=== PATIENT | female | born 1955 | race American Indian/Alaskan Native ===

== ENCOUNTER 2022-02-25 11:42 | Inpatient (IN) | payer MEDICARE, OTHER ==
[2022-02-25] MEDS ORDERED: FUROSEMIDE 40 MG/4 ML INJ IV ONE (11:57)
[2022-02-25] MEDS ORDERED: NITROGLYCERIN 0.4 MG TAB SUBL SL ONE (11:59)
--- NOTE | 2022-02-25 12:02 | Emergency Department Report ---
ED Shortness of Breath HPI - General Chief Complaint: Dyspnea/Respdistress Stated Complaint: GODFREY Time Seen by Provider: 02/25/22 11:54 Source: patient, EMS Mode of arrival: Stretcher Limitations: No Limitations - History of Present Illness Initial Comments: Patient is 66 years old female with history of congestive heart failure and hypertension. Patient brought to the emergency room via EMS from home for evaluation of shortness of breath for the last 2 days. Patient stated that she had chills but no fever. She denied any chest pain. Patient also reported that she is out of her Lasix. MD Complaint: shortness of breath, cough -: days(s) (2) Severity: moderate Known History Of: congestive heart failure Context: recent URI Associated Symptoms: cough - Related Data Previous Rx's Medication Instructions Recorded Last Taken Type HYDROcodone/APAP 5-325 [[place] 1 each PO Q6HR PRN #20 tablet 10/16/14 Unknown Rx 5-325 mg TAB] Ibuprofen [Motrin] 800 mg PO Q8H PRN #30 tablet 10/16/14 Unknown Rx Promethazine [Phenergan] 25 mg PO Q6H PRN #20 tablet 10/16/14 Unknown Rx Allergies Allergy/AdvReac Type Severity Reaction Status Date / Time No Known Allergies Allergy Verified 02/25/22 11:51 ED Review of Systems ROS: Stated complaint: GODFREY Other details as noted in HPI Comment: All other systems reviewed and negative Constitutional: denies: chills, fever Respiratory: cough, orthopnea, shortness of breath, SOB with exertion, SOB at rest. denies: wheezing Cardiovascular: palpitations. denies: chest pain Gastrointestinal: denies: abdominal pain, nausea, vomiting Neurological: denies: headache, weakness, numbness, paresthesias, confusion ED Past Medical Hx - Past Medical History Hx Hypertension: Yes Hx Diabetes: Yes Hx GERD: Yes Hx Arthritis: Yes - Surgical History Additional Surgical History: brain aneurym repair - Social History Smoking Status: Current Every Day Smoker Substance Use Type: Alcohol - Medications Home Medications: Home Medications Medication Instructions Recorded Confirmed Last Taken Type HYDROcodone/APAP 5-325 [[place] 1 each PO Q6HR PRN #20 tablet 10/16/14 Unknown Rx 5-325 mg TAB] Ibuprofen [Motrin] 800 mg PO Q8H PRN #30 tablet 12/23/14 Unknown Rx Promethazine [Phenergan] 25 mg PO Q6H PRN #20 tablet 10/16/14 Unknown Rx ED Physical Exam - General Limitations: No Limitations General appearance: alert, in distress - Head Head exam: Present: atraumatic, normocephalic, normal inspection - Eye Eye exam: Present: normal appearance - ENT ENT exam: Present: normal exam, normal orophraynx, mucous membranes moist - Neck Neck exam: Present: normal inspection, full ROM. Absent: tenderness, meningismus - Respiratory Respiratory exam: Present: respiratory distress, rales, decreased breath sounds. Absent: wheezes, rhonchi, stridor - Cardiovascular Cardiovascular Exam: Present: tachycardia - GI/Abdominal GI/Abdominal exam: Present: soft, normal bowel sounds. Absent: distended, tenderness, guarding, rebound, rigid, organomegaly, mass, bruit, pulsatile mass, hernia - Extremities Exam Extremities exam: Present: normal inspection, full ROM, normal capillary refill. Absent: tenderness, pedal edema - Back Exam Back exam: Present: normal inspection, full ROM. Absent: CVA tenderness (R), CVA tenderness (L) - Neurological Exam Neurological exam: Present: alert, oriented X3, CN II-XII intact - Psychiatric Psychiatric exam: Present: normal mood - Skin Skin exam: Present: warm, intact, normal color ED Course Vital Signs 02/25/22 02/25/22 02/25/22 12:15 12:18 12:27 Temperature 98.7 F Pulse Rate 97 H 88 Respiratory 40 H 30 H 19 Rate Blood Pressure Blood Pressure 145/88 197/102 [Left] O2 Sat by Pulse 97 95 94 Oximetry 02/25/22 12:47 Temperature Pulse Rate 101 H Respiratory 38 H Rate Blood Pressure 189/106 Blood Pressure [Left] O2 Sat by Pulse Oximetry ED Medical Decision Making - Lab Data Result diagrams: 02/25/22 Unknown 02/25/22 Unknown - EKG Data -: EKG Interpreted by Me EKG shows normal: sinus rhythm Rate: normal - EKG Data Interpretation: nonspecific ST-T wave kim - Radiology Data Radiology results: report reviewed - Medical Decision Making Patient is 66 years old female with history of congestive heart failure and hype rtension. Patient brought to the emergency room via EMS from home for evaluation of shortness of breath for the last 2 days. Patient stated that she had chills but no fever. She denied any chest pain. Patient also reported that she is out of her Lasix. EKG showed sinus rhythm with a heart rate of [address] depression in the inferior lead. Chest x-ray showed pulmonary edema. Labs reviewed and showed a BNP of 22,000. Patient received Lasix. Patient also found to be hypertensive with a blood pressure of 190/110. Patient received nitroglycerin also. Patient's symptoms improved. I discussed the patient with Dr. Pierre, he agreed to admit the patient to medical service for further management. Critical Care Time: Yes Critical care time in (mins) excluding proc time.: 35 Critical care attestation.: If time is entered above; I have spent that time in minutes in the direct care of this critically ill patient, excluding procedure time. ED Disposition Clinical Impression: Acute exacerbation of CHF (congestive heart failure), Volume overload Disposition: ADMITTED INPATIENT Is pt being admited?: Yes Condition: Stable
--- NOTE | 2022-02-25 12:33 | XRay Report ---
CHEST 1 VIEW INDICATION: Dyspnea. COMPARISON: None FINDINGS: Support devices: None. Heart: Moderate cardiomegaly Lungs/Pleura: Moderate pulmonary venous congestion. There is focal airspace opacity at the right lung base which could represent an early infiltrate. No pleural effusion or pneumothorax. Additional findings: None. IMPRESSION: Cardiomegaly and pulmonary venous congestion. Possible early infiltrate at the right lung base. Suma elate for pneumonia. Signer Name: Olaf Carballo Jr, MD Signed: 02/25/2022 12:29 PM Workstation Name: [id number]
[2022-02-25 12:42] LABS: BUN/Creatinine Ratio 16; Blood Urea Nitrogen 16 mg/dL (7-17); Calcium 9.3 mg/dL (8.4-10.2); Hemolysis Index 192
[2022-02-25 12:43] LABS: Basophils # (Auto) 0.1 K/mm3 (0.0-0.1); Basophils % (Auto) 0.9 % (0.0-1.8); Hematocrit 42.4 % (30.3-42.9); Hemoglobin 13.5 gm/dl (10.1-14.3); Lymphocytes # (Auto) 0.4 K/mm3 (1.2-5.4); Lymphocytes % (Auto) 4.7 % (13.4-35.0); Mean Corpuscular HGB Conc 32 % (30-34); Mean Corpuscular Volume 84 fl (79-97); Monocytes # (Auto) 0.4 K/mm3 (0.0-0.8); Monocytes % (Auto) 5.4 % (0.0-7.3); Platelet Count 165 K/mm3 (140-440); Red Blood Count 5.08 M/mm3 (3.65-5.03); Red Cell Distribution Width 14.6 % (13.2-15.2)
[2022-02-25 12:50] LABS: INR 0.93 (0.87-1.13)
[2022-02-25 12:51] LABS: Partial Thromboplastin Time 34.9 Sec. (24.2-36.6)
[2022-02-25] MEDS ORDERED: MORPHINE 2 MG/1 ML INJ IV PRN ×2 (13:12→17:10)
[2022-02-25] MEDS ORDERED: ACETAMINOPHEN 325 MG TAB PO PRN ×2 (13:12→17:10)
[2022-02-25] MEDS: ONDANSETRON 4 MG/2 ML INJ IV PRN (15:33)
[2022-02-25] MEDS ORDERED: ONDANSETRON 4 MG/2 ML INJ IV PRN (17:10)
--- NOTE | 2022-02-25 17:13 | History and Physical Report ---
History of Present Illness Date of examination: 02/25/22 Date of admission: 02/25/22 13:12 Chief complaint: Shortness of breath for 2 days History of present illness: 55-year-old female with history of congestive heart failure hypertension comes in for increasing shortness of breath for the last 2 days. Patient has orthopnea. No PND attacks. Palpitations. No chest pain. Patient has class IV NYHA symptoms. Patient is a poor historian and not able to give much history. Patient states that he may have failure for the last couple of years. Not able to name or place. No fever or chills. Exercise is a precipitating factor and rest is a relieving factor - Past Medical History --Hypertension: Yes --Diabetes: Yes --GERD: Yes --Arthritis: Yes - Surgical History --Additional Surgical History: brain aneurym repair - Social History --Smoking Status: Current Every Day Smoker --Substance Use Type: Alcohol - Medications --Home Medications: Home Medications Medication Instructions Recorded Confirmed Last Taken Type HYDROcodone/APAP 5-325 [[place] 1 each PO Q6HR PRN #20 tablet 10/16/14 Unknown Rx 5-325 mg TAB] Ibuprofen [Motrin] 800 mg PO Q8H PRN #30 tablet 10/16/14 Unknown Rx Promethazine [Phenergan] 25 mg PO Q6H PRN #20 tablet 10/16/14 Unknown Rx Review of Systems ROS: Stated complaint: GODFREY Other details as noted in HPI Comment: All other systems reviewed and negative Constitutional: denies: chills, fever Respiratory: cough, orthopnea, shortness of breath, SOB with exertion, SOB at rest. denies: wheezing Cardiovascular: palpitations. denies: chest pain Gastrointestinal: denies: abdominal pain, nausea, vomiting Neurological: denies: headache, weakness, numbness, paresthesias, confusion Medications and Allergies Allergies Allergy/AdvReac Type Severity Reaction Status Date / Time No Known Allergies Allergy Verified 02/25/22 11:51 Home Medications Medication Instructions Recorded Confirmed Last Taken Type Furosemide [Lasix] 20 mg PO QDAY 02/25/22 02/25/22 Unknown History Gabapentin [Neurontin] 100 mg PO Q8HR 02/25/22 02/25/22 Unknown History carvediloL [Coreg] 6.25 mg PO DAILY 02/25/22 02/25/22 Unknown History lisinopriL [Lisinopril] 20 mg PO DAILY 02/25/22 02/25/22 Unknown History Active Meds: Active Medications Acetaminophen (Acetaminophen 325 Mg Tab) 650 mg PO Q4H PRN PRN Reason: Pain MILD(1-3)/Fever >100.5/AGUIAR Morphine Sulfate (Morphine 2 Mg/1 Ml Inj) 2 mg IV Q4H PRN PRN Reason: Pain, Moderate (4-6) Last Admin: 02/25/22 15:33 Dose: 2 mg Ondansetron HCl (Ondansetron 4 Mg/2 Ml Inj) 4 mg IV Q8H PRN PRN Reason: Nausea And Vomiting Last Admin: 02/25/22 15:33 Dose: 4 mg Sodium Chloride (Sodium Chloride 0.9% 10 Ml Flush Syringe) 10 ml IV BID CHARLY Sodium Chloride (Sodium Chloride 0.9% 10 Ml Flush Syringe) 10 ml IV PRN PRN PRN Reason: LINE FLUSH Exam - Constitutional Vitals: Temp Pulse Resp BP Pulse Ox 98.7 F 87 18 188/100 99 02/25/22 12:18 02/25/22 16:40 02/25/22 16:40 02/25/22 16:40 02/25/22 16:40 General appearance: Present: mild distress, well-nourished - EENT Eyes: Present: PERRL ENT: hearing intact, clear oral mucosa - Neck Neck: Present: supple, normal ROM - Respiratory Respiratory effort: normal Respiratory: bilateral: CTA, rales - Cardiovascular Heart rate: 78 Rhythm: regular Heart Sounds: Present: S1 & S2. Absent: rub, click - Extremities Extremities: pulses symmetrical, No edema Peripheral Pulses: within normal limits - Abdominal General gastrointestinal: Present: soft, non-tender, non-distended, normal bowel sounds Female genitourinary: Present: normal - Integumentary Integumentary: Present: clear, warm, dry - Musculoskeletal Musculoskeletal: gait normal, strength equal bilaterally - Psychiatric Psychiatric: appropriate mood/affect, intact judgment & insight - Neurologic Neurologic: CNII-XII intact, moves all extremities - Allied Health Allied health notes reviewed: nursing, case management HEART Score - HEART Score History: Moderately suspicious Age: 45-65 Risk factors: 1-2 risk factors Troponin: Troponin T < 0.010 ng/mL (0.00-0.029) 05/04/22 Unknown Troponin T < 0.010 ng/mL (0.00-0.029) 02/25/22 Unknown Troponin: 1-3x normal limit - Critical Actions Critical Actions: 4-6 pts:12-16.6% risk of adverse cardiac event. Should be admitted Results - Labs CBC & Chem 7: 02/26/22 05:41 02/26/22 05:41 Labs: Laboratory Last Values WBC 7.9 K/mm3 (4.5-11.0) 02/25/22 Unknown RBC 5.08 M/mm3 (3.65-5.03) H 02/25/22 Unknown Hgb 13.5 gm/dl (10.1-14.3) 02/25/22 Unknown Hct 42.4 % (30.3-42.9) 02/25/22 Unknown MCV 84 fl (79-97) 02/25/22 Unknown MCH 27 pg (28-32) L 02/25/22 Unknown MCHC 32 % (30-34) 02/25/22 Unknown RDW 14.6 % (13.2-15.2) 02/25/22 Unknown Plt Count 165 K/mm3 (140-440) 02/25/22 Unknown Lymph % (Auto) 4.7 % (13.4-35.0) L 02/25/22 Unknown Casey % (Auto) 5.4 % (0.0-7.3) 02/25/22 Unknown Eos % (Auto) 0.0 % (0.0-4.3) 02/25/22 Unknown Baso % (Auto) 0.9 % (0.0-1.8) 02/25/22 Unknown Lymph # (Auto) 0.4 K/mm3 (1.2-5.4) L 02/25/22 Unknown Casey # (Auto) 0.4 K/mm3 (0.0-0.8) 02/25/22 Unknown Eos # (Auto) 0.0 K/mm3 (0.0-0.4) 02/25/22 Unknown Baso # (Auto) 0.1 K/mm3 (0.0-0.1) 02/25/22 Unknown Seg Neutrophils % 89.0 % (40.0-70.0) H 02/25/22 Unknown Seg Neutrophils # 7.1 K/mm3 (1.8-7.7) 02/25/22 Unknown PT 13.5 Sec. (12.2-14.9) 02/25/22 Unknown INR 0.93 (0.87-1.13) 02/25/22 Unknown APTT 34.9 Sec. (24.2-36.6) 02/25/22 Unknown Sodium 137 mmol/L (137-145) 02/25/22 Unknown Potassium 5.0 mmol/L (3.6-5.0) 02/25/22 Unknown Chloride 99.7 mmol/L (98-107) 02/25/22 Unknown Carbon Dioxide 20 mmol/L (22-30) L 02/25/22 Unknown Anion Gap 22 mmol/L 02/25/22 Unknown BUN 16 mg/dL (7-17) 02/25/22 Unknown Creatinine 1.0 mg/dL (0.6-1.2) 02/25/22 Unknown Estimated GFR > 60 ml/min 02/25/22 Unknown BUN/Creatinine Ratio 16 % 02/25/22 Unknown Glucose 154 mg/dL (65-100) H 02/25/22 Unknown Lactic Acid 2.40 mmol/L (0.7-2.0) H* 02/25/22 Unknown Calcium 9.3 mg/dL (8.4-10.2) 02/25/22 Unknown Troponin T < 0.010 ng/mL (0.00-0.029) 02/25/22 Unknown Troponin T < 0.010 ng/mL (0.00-0.029) 02/25/22 Unknown NT-Pro-B Natriuret Pep 57084 pg/mL (0-900) H 02/25/22 Unknown Short CBC 02/25/22 02/26/22 Range/Units Unknown 05:41 WBC 7.9 7.8 (4.5-11.0) K/mm3 Hgb 13.5 14.3 (10.1-14.3) gm/dl Hct 42.4 42.5 (30.3-42.9) % Plt Count 165 157 (140-440) K/mm3 BMP 02/25/22 02/26/22 Unknown 05:41 Sodium 137 136 L Potassium 5.0 3.9 D Chloride 99.7 96.2 L Carbon Dioxide 20 L 25 BUN 16 22 H Creatinine 1.0 0.9 Glucose 154 H 128 H Calcium 9.3 8.8 Cardiac Enzymes 02/25/22 02/25/22 Range/Units Unknown Unknown Troponin T < 0.010 < 0.010 (0.00-0.029) ng/mL Liver Function 02/26/22 Range/Units 05:41 Total Bilirubin 0.40 (0.1-1.2) mg/dL AST 22 (5-40) units/L ALT 15 (7-56) units/L Alkaline Phosphatase 88 (35-129) units/L Albumin 4.1 (3.9-5) g/dL Microbiology: Microbiology 02/25/22 13:01 Peripheral/Venous Blood Culture - Preliminary Culture in Progress 02/25/22 12:22 Peripheral/Venous Blood Culture - Preliminary Culture in Progress - Imaging and Cardiology EKG: report reviewed (Sinus tachycardia no acute ST-T wave changes.) Imaging and Cardiology: Chest x-ray Cardiomegaly and pulmonary venous congestion. Possible early infiltrate in the right lung base. Correlate for pneumonia Assessment and Plan Advance Directives: Yes (Full code) VTE prophylaxis?: Chemical Plan of care discussed with patient/family: Yes - Patient Problems (1) Acute exacerbation of CHF (congestive heart failure) Current Visit: Yes Status: Acute Qualifiers: Heart failure type: combined systolic and diastolic Qualified Code(s): I50.43 - Acute on chronic combined systolic (congestive) and diastolic (congestive) heart failure Plan to address problem: Patient on IV Lasix and Aldactone Echocardiogram for ejection fraction. Normal valve function and wall motion abnormalities (2) HTN (hypertension) Current Visit: Yes Status: Chronic Qualifiers: Hypertension type: primary hypertension Qualified Code(s): I10 - Essential (primary) hypertension Plan to address problem: Continue antihypertensives and adjust medications. (3) T2DM (type 2 diabetes mellitus) Current Visit: Yes Status: Chronic Plan to address problem: Coverage for now and check hemoglobin A1c. (4) DVT prophylaxis Current Visit: Yes Status: Acute Plan to address problem: On anticoagulation GI prophylaxis. (5) Advance care planning Current Visit: Yes Status: Acute Plan to address problem: Disease education conducted, care plan discussed, diagnosis discussed. Prognosis discussed. Patient is full code. Patient family member at
[2022-02-25] MEDS ORDERED: hydrALAZINE 20 MG/1 ML INJ IV PRN (17:14)
[2022-02-25] MEDS: SPIRONOLACTONE 50 MG TAB PO SCH (17:27)
[2022-02-25] MEDS: oxyCODONE /ACETAMINOPHEN 5-325MG TAB PO PRN (17:27)
[2022-02-25] MEDS: VALSARTAN 160MG TAB PO SCH (17:27)
[2022-02-25] MEDS: amLODIPine 10 MG TAB PO SCH (17:27)
[2022-02-25] MEDS: FUROSEMIDE 40 MG/4 ML INJ IV SCH (17:29)
[2022-02-25] MEDS: FAMOTIDINE 20 MG TAB PO SCH (22:20)
[2022-02-26] MEDS: oxyCODONE /ACETAMINOPHEN 5-325MG TAB PO PRN (04:48)
[2022-02-26] MEDS: FUROSEMIDE 40 MG/4 ML INJ IV SCH ×2 (05:05→17:38)
[2022-02-26 06:06] LABS: Basophils # (Auto) 0.1 K/mm3 (0.0-0.1); Basophils % (Auto) 0.7 % (0.0-1.8); Hematocrit 42.5 % (30.3-42.9); Hemoglobin 14.3 gm/dl (10.1-14.3); Lymphocytes # (Auto) 1.3 K/mm3 (1.2-5.4); Lymphocytes % (Auto) 16.4 % (13.4-35.0); Mean Corpuscular HGB Conc 34 % (30-34); Mean Corpuscular Volume 81 fl (79-97); Monocytes # (Auto) 0.5 K/mm3 (0.0-0.8); Platelet Count 157 K/mm3 (140-440); Red Blood Count 5.24 M/mm3 (3.65-5.03); Red Cell Distribution Width 14.4 % (13.2-15.2)
[2022-02-26 06:28] LABS: Alanine Aminotransferase 15 units/L (7-56); Albumin 4.1 g/dL (3.9-5); BUN/Creatinine Ratio 24; Blood Urea Nitrogen 22 mg/dL (7-17); Calcium 8.8 mg/dL (8.4-10.2); Hemolysis Index 8
[2022-02-26] MEDS ORDERED: LISINOPRIL 10 MG TAB PO SCH (10:00)
[2022-02-26] MEDS: SPIRONOLACTONE 50 MG TAB PO SCH (10:10)
[2022-02-26] MEDS: LISINOPRIL 20 MG TAB PO SCH (10:11)
[2022-02-26] MEDS: GABAPENTIN 100 MG CAP PO SCH ×3 (10:11→21:34)
[2022-02-26] MEDS: amLODIPine 10 MG TAB PO SCH (10:11)
[2022-02-26] MEDS: FAMOTIDINE 20 MG TAB PO SCH ×2 (10:11→21:34)
[2022-02-26] MEDS: VALSARTAN 160MG TAB PO SCH ×2 (10:11→17:38)
[2022-02-26] MEDS: carvediloL 6.25 MG TAB PO SCH (10:12)
--- NOTE | 2022-02-26 10:48 | Electrocardiograph Report ---
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
[2022-02-27] MEDS: ONDANSETRON 4 MG/2 ML INJ IV PRN ×2 (00:51→16:27)
[2022-02-27] MEDS: oxyCODONE /ACETAMINOPHEN 5-325MG TAB PO PRN ×2 (01:12→13:33)
[2022-02-27] MEDS: VALSARTAN 160MG TAB PO SCH ×2 (06:20→18:33)
[2022-02-27] MEDS: FUROSEMIDE 40 MG/4 ML INJ IV SCH ×2 (06:20→18:22)
[2022-02-27] MEDS: GABAPENTIN 100 MG CAP PO SCH ×2 (06:20→13:31)
--- NOTE | 2022-02-27 07:32 | Progress Note ---
Assessment and Plan - Patient Problems (1) Acute exacerbation of CHF (congestive heart failure) Current Visit: Yes Status: Acute Qualifiers: Heart failure type: combined systolic and diastolic Qualified Code(s): I50.43 - Acute on chronic combined systolic (congestive) and diastolic (congestive) heart failure Plan to address problem: Patient on IV Lasix and Aldactone Echocardiogram for ejection fraction. Normal valve function and wall motion abnormalities (2) HTN (hypertension) Current Visit: Yes Status: Chronic Qualifiers: Hypertension type: primary hypertension Qualified Code(s): I10 - Essential (primary) hypertension Plan to address problem: Continue antihypertensives and adjust medications. (3) T2DM (type 2 diabetes mellitus) Current Visit: Yes Status: Chronic Plan to address problem: Coverage for now and check hemoglobin A1c. (4) DVT prophylaxis Current Visit: Yes Status: Acute Plan to address problem: On anticoagulation GI prophylaxis. (5) Advance care planning Current Visit: Yes Status: Acute Plan to address problem: Disease education conducted, care plan discussed, diagnosis discussed. Prognosis discussed. Patient is full code. Patient family member at Subjective Date of service: 02/26/22 Interval history: 55-year-old female with history of congestive heart failure hypertension comes in for increasing shortness of breath for the last 2 days. Patient has orthopnea. No PND attacks. Palpitations. No chest pain. Patient has class IV NYHA symptoms. Patient is a poor historian and not able to give much history. Patient states that he may have failure for the last couple of years. Not able to name or place. No fever or chills. Exercise is a precipitating factor and rest is a relieving factor. 02/26/2022 Echocardiogram results pending Symptomatically moderately better Still short of breath Alert and oriented Objective - Constitutional Vitals: Vital Signs - 12hr 02/26/22 02/26/22 02/26/22 19:53 20:45 22:00 Temperature 98.6 F Pulse Rate 74 73 Respiratory 18 Rate Blood Pressure 123/68 O2 Sat by Pulse 93 96 Oximetry 02/26/22 02/27/22 02/27/22 23:46 00:00 01:12 Temperature 98.3 F Pulse Rate 66 73 Respiratory 16 17 Rate Blood Pressure 111/68 O2 Sat by Pulse 91 Oximetry 02/27/22 02/27/22 02/27/22 03:43 04:15 06:20 Temperature 98.2 F Pulse Rate 116 H 76 78 Respiratory 17 Rate Blood Pressure 113/78 113/78 O2 Sat by Pulse 98 Oximetry General appearance: Present: no acute distress, well-nourished - EENT Eyes: PERRL, EOM intact ENT: hearing intact, clear oral mucosa Ears: bilateral: normal - Neck Neck: supple, normal ROM - Respiratory Respiratory effort: normal Respiratory: bilateral: CTA - Breasts Breasts: normal - Cardiovascular Heart rate: 78 Rhythm: regular Heart Sounds: Present: S1 & S2. Absent: gallop, rub Extremities: pulses intact, No edema, normal color, Full ROM - Gastrointestinal General gastrointestinal: Present: soft, non-tender, non-distended, normal bowel sounds - Genitourinary Female genitourinary: normal - Integumentary Integumentary: clear, warm, dry - Musculoskeletal Musculoskeletal: 1, strength equal bilaterally - Neurologic Neurologic: moves all extremities - Psychiatric Psychiatric: memory intact, appropriate mood/affect, intact judgment & insight - Labs CBC & Chem 7: 02/26/22 05:41 02/26/22 05:41 HEART Score - HEART Score Age: 45-65 Risk factors: 1-2 risk factors Troponin: Troponin T < 0.010 ng/mL (0.00-0.029) 02/25/22 Unknown Troponin T < 0.010 ng/mL (0.00-0.029) 02/25/22 Unknown Troponin: 1-3x normal limit - Critical Actions Critical Actions: 4-6 pts:12-16.6% risk of adverse cardiac event. Should be admitted
[2022-02-27] MEDS: amLODIPine 10 MG TAB PO SCH (09:37)
[2022-02-27] MEDS: FAMOTIDINE 20 MG TAB PO SCH (09:40)
[2022-02-27] MEDS: SPIRONOLACTONE 50 MG TAB PO SCH (09:40)
[2022-02-27] MEDS: carvediloL 6.25 MG TAB PO SCH (09:40)
[2022-02-27] MEDS: LISINOPRIL 20 MG TAB PO SCH (09:53)
--- NOTE | 2022-02-27 17:10 | History and Physical Report ---
History of Present Illness Date of examination: 02/27/22 Date of admission: 02/25/22 13:12 Medications and Allergies Allergies Allergy/AdvReac Type Severity Reaction Status Date / Time No Known Allergies Allergy Verified 02/25/22 11:51 Home Medications Medication Instructions Recorded Confirmed Last Taken Type Furosemide [Lasix] 20 mg PO QDAY 02/25/22 02/25/22 Unknown History Gabapentin [Neurontin] 100 mg PO Q8HR 02/25/22 02/25/22 Unknown History carvediloL [Coreg] 6.25 mg PO DAILY 02/25/22 02/25/22 Unknown History lisinopriL [Lisinopril] 20 mg PO DAILY 02/25/22 02/25/22 Unknown History Active Meds: Active Medications Acetaminophen (Acetaminophen 325 Mg Tab) 650 mg PO Q4H PRN PRN Reason: Pain MILD(1-3)/Fever >100.5/AGUIAR Amlodipine Besylate (Amlodipine 10 Mg Tab) 10 mg PO QDAY [facility] Last Admin: 02/27/22 09:37 Dose: Not Given Carvedilol (Carvedilol 6.25 Mg Tab) 6.25 mg PO DAILY [facility] Last Admin: 02/27/22 09:40 Dose: 6.25 mg Famotidine (Famotidine 20 Mg Tab) 20 mg PO BID [facility] Last Admin: 02/27/22 09:40 Dose: 20 mg Furosemide (Furosemide 40 Mg/4 Ml Inj) 40 mg IV 0600,1800 [facility] Last Admin: 02/27/22 06:20 Dose: 40 mg Gabapentin (Gabapentin 100 Mg Cap) 100 mg PO Q8HR [facility] Last Admin: 02/27/22 13:31 Dose: 100 mg Hydralazine HCl (Hydralazine 20 Mg/1 Ml Inj) 20 mg IV Q3H PRN PRN Reason: Blood Pressure Last Admin: 02/26/22 04:47 Dose: 20 mg Lisinopril (Lisinopril 20 Mg Tab) 20 mg PO QDAY [facility] Last Admin: 02/27/22 09:53 Dose: 20 mg Morphine Sulfate (Morphine 2 Mg/1 Ml Inj) 2 mg IV Q4H PRN PRN Reason: Pain, Moderate (4-6) Last Admin: 02/25/22 15:33 Dose: 2 mg Ondansetron HCl (Ondansetron 4 Mg/2 Ml Inj) 4 mg IV Q8H PRN PRN Reason: Nausea And Vomiting Last Admin: 02/27/22 16:27 Dose: 4 mg Oxycodone/Acetaminophen (Oxycodone /Acetaminophen 5-325mg Tab) 1 tab PO Q6H PRN PRN Reason: Pain, Moderate (4-6) Last Admin: 02/27/22 13:33 Dose: 1 tab Sodium Chloride (Sodium Chloride 0.9% 10 Ml Flush Syringe) 10 ml IV BID [facility] Last Admin: 02/27/22 09:40 Dose: 10 ml Sodium Chloride (Sodium Chloride 0.9% 10 Ml Flush Syringe) 10 ml IV PRN PRN PRN Reason: LINE FLUSH Spironolactone (Spironolactone 50 Mg Tab) 50 mg PO QDAY [facility] Last Admin: 02/27/22 09:40 Dose: 50 mg Valsartan (Valsartan 160mg Tab) 160 mg PO Q12H [facility] Last Admin: 02/27/22 06:20 Dose: 160 mg Exam - Constitutional Vitals: Temp Pulse Resp BP Pulse Ox 99.1 F 60 16 118/70 93 02/27/22 11:42 02/27/22 11:42 02/27/22 11:42 02/27/22 11:42 02/27/22 11:42 HEART Score - HEART Score Age: 45-65 Risk factors: 1-2 risk factors Troponin: Troponin T < 0.010 ng/mL (0.00-0.029) 02/25/22 Unknown Troponin T < 0.010 ng/mL (0.00-0.029) 02/25/22 Unknown Troponin: 1-3x normal limit - Critical Actions Critical Actions: 4-6 pts:12-16.6% risk of adverse cardiac event. Should be admitted Results - Labs CBC & Chem 7: 02/26/22 05:41 02/26/22 05:41 Labs: Laboratory Last Values WBC 7.8 K/mm3 (4.5-11.0) 02/26/22 05:41 RBC 5.24 M/mm3 (3.65-5.03) H 02/26/22 05:41 Hgb 14.3 gm/dl (10.1-14.3) 02/26/22 05:41 Hct 42.5 % (30.3-42.9) 02/26/22 05:41 MCV 81 fl (79-97) 02/26/22 05:41 MCH 27 pg (28-32) L 02/26/22 05:41 MCHC 34 % (30-34) 02/26/22 05:41 RDW 14.4 % (13.2-15.2) 02/26/22 05:41 Plt Count 157 K/mm3 (140-440) 02/26/22 05:41 Lymph % (Auto) 16.4 % (13.4-35.0) 02/26/22 05:41 [place] % (Auto) 6.0 % (0.0-7.3) 02/26/22 05:41 Eos % (Auto) 0.0 % (0.0-4.3) 02/26/22 05:41 Baso % (Auto) 0.7 % (0.0-1.8) 02/26/22 05:41 Lymph # (Auto) 1.3 K/mm3 (1.2-5.4) 02/26/22 05:41 [place] # (Auto) 0.5 K/mm3 (0.0-0.8) 02/26/22 05:41 Eos # (Auto) 0.0 K/mm3 (0.0-0.4) 02/26/22 05:41 Baso # (Auto) 0.1 K/mm3 (0.0-0.1) 02/26/22 05:41 Seg Neutrophils % 76.9 % (40.0-70.0) H 02/26/22 05:41 Seg Neutrophils # 6.0 K/mm3 (1.8-7.7) 02/26/22 05:41 PT 13.5 Sec. (12.2-14.9) 02/25/22 Unknown INR 0.93 (0.87-1.13) 02/25/22 Unknown APTT 34.9 Sec. (24.2-36.6) 02/25/22 Unknown Sodium 136 mmol/L (137-145) L 02/26/22 05:41 Potassium 3.9 mmol/L (3.6-5.0) D 02/26/22 05:41 Chloride 96.2 mmol/L (98-107) L 02/26/22 05:41 Carbon Dioxide 25 mmol/L (22-30) 02/26/22 05:41 Anion Gap 19 mmol/L 02/26/22 05:41 BUN 22 mg/dL (7-17) H 02/26/22 05:41 Creatinine 0.9 mg/dL (0.6-1.2) 02/26/22 05:41 Estimated GFR > 60 ml/min 02/26/22 05:41 BUN/Creatinine Ratio 24 % 02/26/22 05:41 Glucose 128 mg/dL (65-100) H 02/26/22 05:41 Lactic Acid 2.40 mmol/L (0.7-2.0) H* 02/25/22 Unknown Calcium 8.8 mg/dL (8.4-10.2) 02/26/22 05:41 Total Bilirubin 0.40 mg/dL (0.1-1.2) 02/26/22 05:41 AST 22 units/L (5-40) 02/26/22 05:41 ALT 15 units/L (7-56) 02/26/22 05:41 Alkaline Phosphatase 88 units/L (35-129) 02/26/22 05:41 Troponin T < 0.010 ng/mL (0.00-0.029) 02/25/22 Unknown Troponin T < 0.010 ng/mL (0.00-0.029) 02/25/22 Unknown NT-Pro-B Natriuret Pep 57368 pg/mL (0-900) H 02/25/22 Unknown Total Protein 6.5 g/dL (6.3-8.2) 02/26/22 05:41 Albumin 4.1 g/dL (3.9-5) 02/26/22 05:41 Albumin/Globulin Ratio 1.7 % 02/26/22 05:41 Microbiology: Microbiology 02/25/22 13:01 Peripheral/Venous Blood Culture - Preliminary NO GROWTH AFTER 48 HOURS 02/25/22 12:22 Peripheral/Venous Blood Culture - Preliminary NO GROWTH AFTER 48 HOURS Reyes/IV: Voiding Method Toilet Assessment and Plan - Patient Problems (1) Acute exacerbation of CHF (congestive heart failure) Current Visit: Yes Status: Acute Qualifiers: Heart failure type: combined systolic and diastolic Qualified Code(s): I50.43 - Acute on chronic combined systolic (congestive) and diastolic (congestive) heart failure (2) HTN (hypertension) Current Visit: Yes Status: Chronic Qualifiers: Hypertension type: primary hypertension Qualified Code(s): I10 - Essential (primary) hypertension (3) T2DM (type 2 diabetes mellitus) Current Visit: Yes Status: Chronic (4) DVT prophylaxis Current Visit: Yes Status: Acute (5) Advance care planning Current Visit: Yes Status: Acute
[2022-02-27 17:14] VITALS: BP 108/66
--- NOTE | 2022-02-27 17:15 | Discharge Summary ---
Providers - Providers Date of Admission: 02/25/22 13:12 Date of discharge: 02/27/22 Attending physician: MAKENNA MASON Primary care physician: EVE MEDINA Hospitalization Condition: Stable Pertinent studies: Echocardiogram--- ejection fraction is 30 to 35% Echocardiogram Left ventricle is mildly dilated Mild concentric left ventricular hypertrophy Severe global hypokinesis of the left ventricle Mild diastolic dysfunction Impaired relaxation pattern LVEF is 30 to 35%. Right ventricle is normal. Left atrium is severely dilated. Right atrium is normal. There is aortic valve leaflet calcification. There is There is no aortic valvular stenosis. Trace aortic regurgitation. Mitral valve leaflets are thickened. Trace mitral regurgitation. Hospital course: Subjective Date of service: 02/27/22 Interval history: 55-year-old female with history of congestive heart failure hypertension comes in for increasing shortness of breath for the last 2 days. Patient has orthopnea. No PND attacks. Palpitations. No chest pain. Patient has class IV NYHA symptoms. Patient is a poor historian and not able to give much history. Patient states that he may have failure for the last couple of years. Not able to name or place. No fever or chills. Exercise is a precipitating factor and rest is a relieving factor. 02/26/2022 Echocardiogram results pending Symptomatically moderately better Still short of breath Alert and oriented 02/27/2022 Shortness of breath is better Echocardiogram results show ejection fraction of 30 to 35% Left ventricular hypertrophy Discussed with patient about discharge medications Patient follows with [facility] patient to be discharged on oral Lasix and Ald actone Assessment and Plan - Patient Problems (1) acute respiratory failure with hypoxia Patient was hypoxic initially at the time of admission to the emergency room Patient is off oxygen and on room air. (2) Acute exacerbation of CHF (congestive heart failure) Current Visit: Yes Status: Acute Qualifiers: Heart failure type: combined systolic and diastolic Qualified Code(s): I50.43 - Acute on chronic combined systolic (congestive) and diastolic (congestive) heart failure Plan to address problem: Patient to be discharged on oral Lasix and Aldactone (3) HTN (hypertension) Current Visit: Yes Status: Chronic Qualifiers: Hypertension type: primary hypertension Qualified Code(s): I10 - Essential (primary) hypertension Plan to address problem: Patient to be discharged on oral antihypertensives (4) T2DM (type 2 diabetes mellitus) Current Visit: Yes Status: Chronic Plan to address problem: Metformin 500 twice a day (5) Advance care planning Current Visit: Yes Status: Acute Plan to address problem: Disease education conducted, care plan discussed, diagnosis discussed. Prognosis discussed. Patient is full code. Patient family member at Disposition: 01 HOME / SELF CARE / HOMELESS Final Discharge Diagnosis (Prints w/discharge instructions): CHF exacerbation. Acute respiratory failure with hypoxia. Hypertension. T2DM Time spent for discharge: 35 minutes - Discharge Diagnoses (1) Acute exacerbation of CHF (congestive heart failure) Status: Acute Qualifiers: Heart failure type: combined systolic and diastolic Qualified Code(s): I50.43 - Acute on chronic combined systolic (congestive) and diastolic (congestive) heart failure (2) HTN (hypertension) Status: Chronic Qualifiers: Hypertension type: primary hypertension Qualified Code(s): I10 - Essential (primary) hypertension (3) T2DM (type 2 diabetes mellitus) Status: Chronic (4) DVT prophylaxis Status: Acute (5) Advance care planning Status: Acute Core Measure Documentation - Palliative Care Palliative Care/ Comfort Measures: Not Applicable - Core Measures Any of the following diagnoses?: none Exam - Constitutional Vitals: Temp Pulse Resp BP Pulse Ox 99.1 F 60 16 118/70 93 02/27/22 11:42 02/27/22 11:42 02/27/22 11:42 02/27/22 11:42 02/27/22 11:42 General appearance: Present: no acute distress, well-nourished - EENT Eyes: Present: PERRL ENT: hearing intact, clear oral mucosa - Neck Neck: Present: supple, normal ROM - Respiratory Respiratory effort: normal Respiratory: bilateral: CTA - Cardiovascular Heart rate: 78 Rhythm: regular Heart Sounds: Present: S1 & S2. Absent: rub, click - Extremities Extremities: no ischemia, pulses symmetrical, No edema Peripheral Pulses: within normal limits - Abdominal General gastrointestinal: Present: soft, non-tender, non-distended, normal bowel sounds Female genitourinary: Present: normal - Integumentary Integumentary: Present: clear, warm, dry - Musculoskeletal Musculoskeletal: gait normal, strength equal bilaterally - Psychiatric Psychiatric: appropriate mood/affect, intact judgment & insight - Neurologic Neurologic: CNII-XII intact, moves all extremities Plan Activity: no restrictions Diet: low fat, low cholesterol, low salt Follow up with: EVE MEDINA MD [Primary Care Provider] - 7 Days
== END 2022-02-27 19:26 | disposition home or self-care (01) | DRG 291 ==
LOC: ED 11:42 → 4A 13:12
PROVIDERS: ADMIT Internal Medicine; ATTEND Internal Medicine
DX: I11.0 Hypertensive heart disease with heart failure (principal); I50.43 Acute on chronic combined systolic (congestive) and diastolic (congestive) heart failure; J96.01 Acute respiratory failure with hypoxia; M19.90 Unspecified osteoarthritis, unspecified site; K21.9 Gastro-esophageal reflux disease without esophagitis; E11.9 Type 2 diabetes mellitus without complications; F17.200 Nicotine dependence, unspecified, uncomplicated; Z79.899 Other long term (current) drug therapy
CPT/HCPCS: 36415; 71045; 80048; 80053; 82140; 83880; 84484; 85025; 85610; 85730; 87040; 93005; 93306; 96374; 96375; 99291; 99406; G0378; C8929; J0360; J1940; J2270; J2405

== ENCOUNTER 2022-05-28 11:21 | Outpatient (CLI) | payer OTHER ==
--- NOTE | 2022-06-01 17:45 | Mammography Report ---
DIGITAL SCREENING MAMMOGRAM WITH CAD, 05/28/2022 CLINICAL INFORMATION / INDICATION: Routine screening mammography. TECHNIQUE: Digital bilateral 2D mammography was obtained in the craniocaudal and mediolateral obliqu e projections. This examination was interpreted with the benefit of Computer-Aided Detection analysis . COMPARISON: None available FINDINGS: Breast Density: The breasts are heterogeneously dense, which may obscure small masses. No dominant mass, suspicious calcifications, or architectural distortion in the right breast. There a re few benign-appearing calcifications scattered throughout the right breast. There is a 1.5 cm round mass projecting within the medial aspect of the left breast, middle/posterior depth. This is not confidently identified on the MLO view. IMPRESSION: Left breast 1.5 cm medial mass. Recommend further evaluation with spot compression imagin g followed by possible left breast ultrasound. Follow up recommendation: Special View: Spot Compression BI-RADS Category 0: INCOMPLETE. Needs additional imaging evaluation and/or prior mammograms for lupe wislon. A "normal" or negative report should not discourage follow up or biopsy of a clinically significant f inding. A written summary of these findings will be mailed to the patient. The patient will be entered into a mammography reporting system which will generate a reminder letter for the patient's next appointmen t at the appropriate interval. The [employer] recommends yearly mammograms starting at age 40 and continuing as l vijay as a woman is in good health. Breast MRI is recommended for women with an approximate 20-25% or greater lifetime risk of breast cancer, including women with a strong family history of breast or ova steve cancer or who have been treated for Hodgkin's disease. Signer Name: Lydia Galloway MD Signed: 06/01/2022 5:41 PM Workstation Name: [employer]
== END 2022-05-28 11:22 | disposition home or self-care (01) ==
LOC: MAMMO 11:21
DX: Z12.31 Encounter for screening mammogram for malignant neoplasm of breast (principal)
CPT/HCPCS: 77067